=== PATIENT | female | born 1970 | race Caucasian/White ===

== ENCOUNTER 2019-04-23 18:07 | Emergency (ER) | payer MEDICAID ==
[2019-04-23] MEDS: HYDROCODONE/APAP (5/325) TAB PO (20:30)
[2019-04-23] MEDS: KETOROLAC 30 MG INJ IM (20:39)
[2019-04-23] MEDS: ONDANSETRON (ODT) 4 MG TAB ODT (22:14)
== END 2019-04-23 23:27 | disposition home or self-care (01) ==
LOC: FTE 18:07
DX: M75.22 Bicipital tendinitis, left shoulder (principal); I10 Essential (primary) hypertension; E11.9 Type 2 diabetes mellitus without complications; Z79.84 Long term (current) use of oral hypoglycemic drugs
CPT/HCPCS: 73030; 81025; 96372; 99284-25